=== PATIENT | male | born 1960 | race Caucasian/White ===

== ENCOUNTER → 2021-05-21 | Outpatient (CLI) | payer OTHER ==
--- NOTE | 2021-05-22 08:45 | RAD ---
EXAM: ULTRASOUND SOFT TISSUE NECK CLINICAL HISTORY: Neck fullness. COMPARISON: None. TECHNIQUE: Targeted ultrasound evaluation at the region of concern. FINDINGS: ACR TI-RADS risk category: not generated as the thyroid is not imaged. Imaging focused on the submandibular region. Relatively homogeneous echogenicity of the submandibular glands with the right measuring 4.5 cm in length and the left 4.6 cm. No glandular mass or perigland ular lymphadenopathy. IMPRESSION: The region of neck "fullness" corresponds to the submandibular glands which exhibit an unremarkable s onographic appearance. No lymph node enlargement at the areas of concern. Electronically signed by: HEIDI GUO MD (05/22/2021 8:42 AM) [facility]
== END ==
LOC: US 14:18
PROVIDERS: ATTEND Physician Assistant
DX: R22.1 Localized swelling, mass and lump, neck (principal)
CPT/HCPCS: 76536